=== PATIENT | male | born 1975 | race African-American/Black ===

== ENCOUNTER 2017-04-07 22:01 | Emergency (ER) | payer SELFPAY ==
[~2017-04-07] VITALS: Ht 177.8 cm; Wt 76.7 kg
[2017-04-07 22:05] VITALS: BP 114/76
--- NOTE | 2017-04-07 22:36 | NUR ---
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
--- NOTE | 2017-04-08 03:27 | NUR ---
ALINA LOPEZ IS SPEAKING WITH MD MUSTAFA
--- NOTE | 2017-04-08 03:27 | NUR ---
PANEL CALLED , ALINA PAGED
== END 2017-04-08 04:30 | disposition home or self-care (01) ==
LOC: ER 22:07
DX: M75.21 Bicipital tendinitis, right shoulder (principal); M34.9 Systemic sclerosis, unspecified
CPT/HCPCS: 73030-TC; 73200-TC; A4606; J1885; Z7610